=== PATIENT | male | born 1955 | race Caucasian/White ===

== ENCOUNTER → 2023-12-29 10:52 | Outpatient (REF) | payer MEDICARE, OTHER, SELFPAY ==
[2023-12-29 13:14] LABS: Glycohemoglobin (HgbA1c) 5.7 % (4.0-5.6)
[2023-12-29 13:29] LABS: Blood Urea Nitrogen 9 mg/dl (9-20); Calcium 8.7 mg/dl (8.4-10.2); Carbon Dioxide 27 mmol/L (22-30); Chloride 103 mmol/L (98-107); Glucose 79 mg/dl (70-99); Potassium 4.1 mmol/L (3.5-5.1); Sodium 138 mmol/L (135-145); eGFR > 60.00
[2023-12-29 13:35] LABS: Depakane 32.7 ug/ml (50.0-120.0)
== END ==
LOC: OLABN 10:52
PROVIDERS: ATTENDING PHYSICIAN Internal Medicine Geriatric Medicine
DX: Z79.4 Long term (current) use of insulin (principal); E78.5 Hyperlipidemia, unspecified
CPT/HCPCS: 36415; 80048; 80164; 83036

== ENCOUNTER → 2024-12-27 09:50 | Outpatient (REF) | payer MEDICARE, OTHER, SELFPAY ==
[2024-12-27 11:10] LABS: Depakane 49.2 ug/ml (50.0-120.0)
[2024-12-27 11:25] LABS: Glycohemoglobin (HgbA1c) 5.2 % (4.0-5.6)
== END ==
LOC: OLABN 09:50
PROVIDERS: ATTENDING PHYSICIAN Internal Medicine Geriatric Medicine
DX: Z51.81 Encounter for therapeutic drug level monitoring (principal); R73.9 Hyperglycemia, unspecified
CPT/HCPCS: 36415; 80164; 83036